=== PATIENT | male | born 1955 | race Caucasian/White ===

== ENCOUNTER 2016-07-31 10:17 | Emergency (ER) | payer OTHER ==
[~2016-07-31] VITALS: Ht 185.4 cm; Wt 136.1 kg
[2016-07-31] MEDS ORDERED: EPINEPHrine HCL 1 MG/10 ML SYRG ONE (10:27)
[2016-07-31] MEDS ORDERED: CALCIUM CHLOR(10%) 100MG/ML 10ML SYRINGE IV ONE (17:08)
[2016-07-31] MEDS ORDERED: SODIUM BICARBONATE 8.4% INJ 50ML SYRINGE IV ONE (17:08)
[2016-07-31] MEDS ORDERED: EPINEPHrine HCL 1 MG/10 ML SYRG IV ONE (17:08)
== END 2016-07-31 14:57 | disposition expired ==
LOC: ER 10:17
DX: I46.9 Cardiac arrest, cause unspecified (principal)
CPT/HCPCS: 31500; 82962; 92950; 99285; J0171